=== PATIENT | male | born 1965 | race Caucasian/White ===

== ENCOUNTER 2019-01-03 17:41 | Emergency (ER) | payer OTHER ==
[~2019-01-03] VITALS: Wt 82.5 kg
--- NOTE | 2019-01-03 22:57 | ERD ---
ER Documentation Chief Complaint Chief Complaint pt. sent by clinic for abd pain HPI The patient is a 53-year-old male, presenting to the ER from the clinic because of intermittent epigastric/suprapubic abdominal pain for 2 weeks, worse with food, associated with constipation. He denies fever, chills, neck pain, chest pain, dyspnea, dysuria. He does not smoke nor drink Past medical history: Gastritis, hiatal hernia, hypertension Past surgical history: None ROS All systems reviewed and are negative except as per history of present illness. Allergies Allergies: Coded Allergies: No Known Allergy (Unverified , 01/03/19) PMhx/Soc Hx Alcohol Use: No Hx Substance Use: No Hx Tobacco Use: No Smoking Status: Never smoker Physical Exam Vitals Vital Signs Date Temp Pulse Resp B/P (MAP) Pulse Ox O2 O2 Flow FiO2 Time Delivery Rate 01/03/19 97.9 65 19 139/107 99 Room Air 22:53 (118) 01/03/19 98.2 71 20 140/81 99 18:28 (100) Physical Exam Const: No acute distress. Head: Atraumatic. Eyes: Normal Conjunctiva. ENT: Normal External Ears, Nose and Mouth. Neck: Full range of motion. No meningismus. Resp: Clear to auscultation bilaterally. Cardio: Regular rate and rhythm. Abd: Soft, non distended, normal bowel sounds, mild epigastric and suprapubic abdominal discomfort, no right lower quadrant/right upper quadrant/rigidity/rebound or CVA tenderness Skin: No petechiae or rashes. Back: No midline or flank tenderness. Ext: No cyanosis, or edema. Neur: Awake and alert. No focal deficit Psych: Normal Mood and Affect. Result Diagram: 01/03/19230901/03/192309 Results 24 hrs Laboratory Tests Test 01/03/19 23:10 01/04/19 00:06 White Blood Count 5.4 10^3/ul Red Blood Count 4.91 10^6/ul Hemoglobin 14.8 g/dl Hematocrit 45.5 % Mean Corpuscular Volume 92.7 fl Mean Corpuscular Hemoglobin 30.1 pg Mean Corpuscular Hemoglobin Concent 32.5 g/dl Red Cell Distribution Width 13.3 % Platelet Count 249 10^3/UL Mean Platelet Volume 9.3 fl Immature Granulocytes % 1.900 % Neutrophils % 46.4 % Lymphocytes % 39.0 % Monocytes % 9.0 % Eosinophils % 3.0 % Basophils % 0.7 % Nucleated Red Blood Cells % 0.0 /100WBC Immature Granulocytes # 0.100 10^3/ul Neutrophils # 2.5 10^3/ul Lymphocytes # 2.1 10^3/ul Monocytes # 0.5 10^3/ul Eosinophils # 0.2 10^3/ul Basophils # 0.0 10^3/ul Nucleated Red Blood Cells # 0.0 10^3/ul Sodium Level 141 mmol/L Potassium Level 3.9 mmol/L Chloride Level 106 mmol/L Carbon Dioxide Level 24 mmol/L Anion Gap 11 Blood Urea Nitrogen 16 mg/dl Creatinine 0.95 mg/dl Est Glomerular Filtrat Rate mL/min > 60 mL/min Glucose Level 88 mg/dl Calcium Level 9.1 mg/dl Total Bilirubin 0.1 mg/dl Direct Bilirubin 0.00 mg/dl Indirect Bilirubin 0.1 mg/dl Aspartate Amino Transf (AST/SGOT) 27 IU/L Alanine Aminotransferase (ALT/SGPT) 28 IU/L Alkaline Phosphatase 124 IU/L Total Protein 7.7 g/dl Albumin 4.1 g/dl Globulin 3.60 g/dl Albumin/Globulin Ratio 1.13 Lipase 338 U/L Bedside Urine pH (LAB) 5.5 Bedside Urine Protein (LAB) Trace Bedside Urine Glucose (UA) Negative Bedside Urine Ketones (LAB) Negative Bedside Urine Blood Negative Bedside Urine Nitrite (LAB) Negative Bedside Urine Leukocyte Esterase (L Negative Current Medications Medications Dose Sig/Macy Start Time Status Last (Trade) Ordered Route PRN Stop Time Admin Dose Reason Admin 40 mg ONCE ONCE 01/03/19 DC 01/03/19 Pantoprazole IV 23:30 23:16 (Protonix 01/03/19 23:31 Iv) Procedures/MDM MEDICAL MAKING DECISION: The patient is a 53-year-old male, presenting with acute on chronic epigastric abdominal pain, most likely due to chronic gastritis and hiatal hernia. He was treated with Protonix 40 mg IV with good response, is stable for outpatient follow-up The differential diagnoses considered include but are not limited to cholelithiasis, cholecystitis, choledocholithiasis, cholangitis, pancreatitis, hepatitis, gastritis, peptic ulcer disease, gastric ulcer, appendicitis, cystitis, diverticulitis, partial small bowel obstruction. Departure Diagnosis: Primary Impression: Abdominal pain Condition: Good Comments He was advised to continue omeprazole I discussed the findings with the patient. I advised the patient to follow-up with the primary physician in about 2-3 days, sooner if needed and return if any concern. Disclaimer: Inadvertent spelling and grammatical errors are likely due to EHR/dictation software use and do not reflect on the overall quality of patient care. Also, please note that the electronic time recorded on this note does not necessarily reflect the actual time of the patient encounter. BOLA GARDNER MD Jan 03, 2019 22:57
[2019-01-03] MEDS ORDERED: PANTOPRAZOLE 40 MG INJ IV ONE (23:30)
[2019-01-04 01:08] VITALS: BP 124/85; PULSE 60; RESP 18
== END 2019-01-04 01:18 | disposition home or self-care (01) ==
LOC: E/R 17:41
DX: R10.13 Epigastric pain (principal); I10 Essential (primary) hypertension
CPT/HCPCS: 36415; 80053; 81003; 83690; 85025; 96374; C9113; Z7502